=== PATIENT | female | born 1970 | race Caucasian/White ===

== ENCOUNTER 2018-12-11 09:46 | Day surgery (SDC) | payer BC ==
[~2018-12-11] VITALS: Ht 152.4 cm; Wt 75.0 kg
[2018-12-11 10:21] LABS: HEMATOCRIT 40.3 % (36.0-48.0); HEMOGLOBIN 13.9 g/dL (12-16); MCH 29.3 pg (26.0-34.0); MCHC 34.5 g/dL (31.0-37.0); MEAN PLATELET VOLUME 12.2 fL (7.4-10.4); RBC 4.74 10x6/uL (4.00-5.40); WBC 6.1 10x3/uL (4.8-10.8)
[2018-12-11 11:46] VITALS: BP 127/87; Ht 152.4 cm; Wt 75.0 kg
[2018-12-11 13:11] LABS: ALBUMIN 3.7 g/dL (3.4-5.0); BILIRUBIN - DIRECT 0.05 mg/dL (0.00-0.30); BILIRUBIN - INDIRECT 0.3 mg/dL (0.00-1.00); BILIRUBIN - TOTAL 0.35 mg/dL (0.2-1.3); PROTEIN - SERUM 7.2 g/dL (6.4-8.2)
--- NOTE | 2018-12-12 17:19 | OP ---
PATIENT NAME: RASTA LA MEDICAL RECORD: [id number] :74 LOCATION:[facility] ADMISSION DATE: SURGEON: JOHNNY CAZARES MD DATE OF OPERATION: 12/11/2018 PROCEDURE: EGD with biopsy. REFERRING PHYSICIAN: Dr. Gopal Ahumada. INDICATIONS: Ms. La is a delightful 48-year-old woman who presents for further evaluation of epigastric pain for the past year and a half. She has had intermittent high epigastric pain. She has tried nisq-fsn-zkdalxb Nexium, which seemed to help for a short period of time. She has had a chest x-ray that showed no abnormalities. She has had no melena, hematochezia or abnormal weight loss. She typically has 3-4 soft loose bowel movements daily, which has been her bowel habits since her cholecystectomy in 1990. She presents for outpatient EGD. PREMEDICATIONS: Total IV anesthesia, propofol 150 mg. INSTRUMENT: Olympus video gastroscope. PROCEDURE AND FINDINGS: After receiving informed consent, Ms. La's posterior pharynx was anesthetized with Cetacaine spray, placed in left lateral decubitus position, sedated as per anesthesia. After achieving adequate level of sedation, gastroscope was introduced per orally and advanced to the duodenum without difficulty. The esophageal mucosa was without erythema, ulcers, strictures or masses, appeared normal down the GE junction. Biopsy taken from the distal third of the esophagus to rule out microscopic evidence of GE reflux disease. Small hiatal hernia was present. Gastric mucosa was notable for streaks of erythema in the antrum and the antral biopsies were obtained to rule out Helicobacter pylori. In the fundus was a 0.75 cm sessile polyp that was cold biopsied. Pylorus was patent and competent. Duodenal mucosa was without erythema or ulcers, appeared normal through the second portion. Biopsies were taken from the second portion of duodenum to rule out celiac disease. Gastroscope was then withdrawn. Ms. La tolerated the procedure well, no immediate complications. ASSESSMENT: 1. Small hiatal hernia. 2. Polyp in the fundus of the stomach status post biopsy. 3. Gastritis involving the antrum, status post biopsy. 4. Normal-appearing duodenum. 5. Duodenal mucosa. RECOMMENDATIONS: 1. Follow up histopathology. 2. Pantoprazole 40 mg p.o. daily. 3. Right upper quadrant ultrasound, rule out retained common bile duct stone. 4. We will check amylase, lipase and liver function test. TRANSINT:[id number] Voice Confirmation ID: [id number] DOCUMENT ID: [id number] OPERATIVE REPORT [id number] RASTA LA TERRI MD at 1719 CC: GOPAL AHUMADA MD [id number] DICTATION DATE: 12/11/18 1233 DRAPERY SEWER HAND: 12/11/18 1331 [facility] 12/11/18 [id number] [place] [address]
== END 2018-12-11 13:35 | disposition home or self-care (01) ==
LOC: D.OPS
PROVIDERS: Anesthesiology; ATTEND Internal Medicine Gastroenterology
DX: K29.70 Gastritis, unspecified, without bleeding (principal); K31.7 Polyp of stomach and duodenum; K44.9 Diaphragmatic hernia without obstruction or gangrene

== ENCOUNTER → 2018-12-16 07:49 | Outpatient (CLI) | payer BC ==
[2018-12-11 11:46] VITALS: BMI 32.2
== END | disposition home or self-care (01) ==
LOC: D.US 07:49
PROVIDERS: ATTEND Internal Medicine Gastroenterology
DX: R10.9 Unspecified abdominal pain (principal)

== ENCOUNTER 2018-12-25 06:49 | Day surgery (SDC) | payer BC ==
[~2018-12-25] VITALS: Ht 152.4 cm; Wt 68.2 kg
[2018-12-25 07:11] LABS: HEMATOCRIT 41.9 % (36.0-48.0); HEMOGLOBIN 14.2 g/dL (12-16); MCH 28.8 pg (26.0-34.0); MCHC 33.9 g/dL (31.0-37.0); MEAN PLATELET VOLUME 12.3 fL (7.4-10.4); RBC 4.93 10x6/uL (4.00-5.40); RDW 12.9 % (11.5-14.5); WBC 8.3 10x3/uL (4.8-10.8)
[2018-12-25] MEDS ORDERED: AMOXICILLIN500 M1 (07:43)
[2018-12-25] MEDS ORDERED: CLARITHROMYCIN 500 MG (07:45)
[2018-12-25] MEDS ORDERED: PREVACID30 MG PO (07:45)
[2018-12-25] MEDS ORDERED: PROBIOTIC1 EAC1 PO (07:46)
[2018-12-25 08:07] VITALS: BP 110/77; Ht 152.4 cm; Wt 68.2 kg
--- NOTE | 2018-12-25 09:34 | NUR ---
0932-INJECT FUNDAL POLYP TIMES TWO WITH RENALDO INK-1 CC EACH-TWO SITES.
[2018-12-25 11:49] LABS: CALC OSMOLALITY 276 mosm/kg (275-300); CALCIUM 8.6 mg/dL (8.5-10.1); CARBON DIOXIDE 28.6 mmol/L (21.0-32.0); CHLORIDE - SERUM 103 mmol/L (98-107); CREATININE - SERUM 0.7 mg/dL (0.6-1.3); GLUCOSE 96 mg/dL (74-106); POTASSIUM - SERUM 4.5 mmol/L (3.5-5.1); SODIUM 139 mmol/L (136-145); UREA NITROGEN 9 mg/dL (7-18); eGFR NON AFRICAN AMERICAN > 90 mL/min (90-120)
--- NOTE | 2018-12-25 12:23 | OP ---
PATIENT NAME: RASTA LA MEDICAL RECORD: [id number] :74 LOCATION:[facility] ADMISSION DATE: SURGEON: JOHNNY CAZARES MD DATE OF OPERATION: 12/25/2018 PROCEDURE: EGD with biopsy and tattoo. REFERRING PHYSICIAN: Dr. Gopal Ahumada. INDICATIONS: Ms. La is a delightful 48-year-old woman with a history of epigastric pain, which has been present for over a year and a half, no relief with saxm-eie-dtpoien Nexium. She had an EGD on 12/11/2018 that shows small hiatal hernia. A small polyp, approximate 0.75 cm sessile polyp, in the fundus of the stomach and gastritis. Initial histopathology showed the antral biopsies to be negative for H. pylori and the gastric polyp to have a lymphoplasmacytic infiltrate with tissues sent for IHC. The specimens were sent for second opinion to [facility] where the gastric polyp biopsy showed adenocarcinoma, poorly differentiated, with diffuse type features, with H. pylori present; antral biopsy showed mild chronic inactive gastritis with the ciliary forms morphologically consistent with H. pylori present. She has been started on a Prevpac to treat her H. pylori. She presents for a followup EGD with the purpose of rebiopsy and tattoo for intraoperative identification. PREMEDICATIONS: Total IV anesthesia (propofol 340 mg). INSTRUMENT: Olympus video gastroscope. PROCEDURE AND FINDINGS: After receiving informed consent, Ms. La's posterior pharynx was anesthetized with Cetacaine spray. She was placed in left lateral decubitus position and sedated as per anesthesia. After achieving an adequate level of sedation, gastroscope was introduced per orally and advanced into the duodenum without difficulty. The esophageal mucosa was without erythema, ulcers, strictures or masses and appeared normal down the GE junction. A small hiatal hernia is present. Gastric mucosa was notable for streaky erythema in the antrum and no antral biopsies were obtained on this exam. In the fundus of the stomach, along the greater curvature was a 0.75 cm sessile polyp with the area tattooed with total of 2 cc of Abeba ink. Then the polyp was rebiopsied. Also, there was a diminutive polyp measuring 0.25 cm in size in the cardia of the stomach, which was likewise biopsied. Pylorus was patent and competent. Duodenal mucosa was without erythema or ulcers, appeared normal through the third portion. Gastroscope was then withdrawn. Ms. La tolerated the procedure well. No immediate complications. ASSESSMENT: 1. Fundal polyp status post tattoo and biopsy. 2. Small polyp in the cardia. 3. Gastritis. 4. Small hiatal hernia. RECOMMENDATIONS: 1. Follow up histopathology. 2. CT of the chest, abdomen and pelvis. 3. Mammogram. TRANSINT:[id number] Voice Confirmation ID: [id number] DOCUMENT ID: [id number] OPERATIVE REPORT [id number] RASTA LA TERRI MD at 1223 CC: GOPAL AHUMADA MD [id number] DICTATION DATE: 12/25/18 0959 SENIOR FUNCTIONAL ANALYST: 12/25/18 1143 [facility] [address] [place] [address]
--- NOTE | 2018-12-25 15:55 | NUR ---
[address] TOLERATING FULL LIQUIDS. VSS.
== END 2018-12-25 13:00 | disposition home or self-care (01) ==
LOC: D.OPS 06:49
PROVIDERS: Anesthesiology; ATTEND Internal Medicine Gastroenterology
DX: K31.7 Polyp of stomach and duodenum (principal); C16.1 Malignant neoplasm of fundus of stomach; K29.50 Unspecified chronic gastritis without bleeding; B96.81 Helicobacter pylori [H. pylori] as the cause of diseases classified elsewhere; K44.9 Diaphragmatic hernia without obstruction or gangrene; Z79.899 Other long term (current) drug therapy; Z01.812 Encounter for preprocedural laboratory examination

== ENCOUNTER → 2019-01-20 09:13 | Outpatient (CLI) | payer BC ==
[2018-12-25 08:07] VITALS: BMI 29.3
[~2019-01-20 09:13] MED LIST: AMOXICILLIN500 M1; CLARITHROMYCIN 500 MG; PREVACID30 MG PO; PROBIOTIC1 EAC1 PO
== END | disposition home or self-care (01) ==
LOC: D.NM 09:13
PROVIDERS: ATTEND Internal Medicine Gastroenterology
DX: D3A.092 Benign carcinoid tumor of the stomach (principal)

== ENCOUNTER 2019-05-23 08:07 | Emergency (ER) | payer BC ==
[~2019-05-23] VITALS: Ht 152.4 cm; Wt 63.6 kg
[2019-05-23 08:17] VITALS: Ht 152.4 cm; Wt 63.6 kg
[2019-05-23 08:30] LABS: APPEARANCE HAZY (CLEAR); COLOR YELLOW (YELLOW)
[2019-05-23 08:31] LABS: BILIRUBIN NEGATIVE (NEGATIVE); GLUCOSE NEGATIVE (NEGATIVE); KETONE MODERATE mg/dL (NEGATIVE); NITRITE NEGATIVE (NEGATIVE); PROTEIN NEGATIVE (NEGATIVE); UROBILINOGEN NORMAL (NORMAL)
[2019-05-23 08:35] LABS: BACTERIA FEW /hpf (NONE SEEN); EPITHELIAL CELLS 0-5 /hpf (0-5); MUCUS <1+ /lpf (NONE SEEN); RED CELLS - URINE 25-50 /hpf (0-5)
[2019-05-23] MEDS ORDERED: CIPRO250 MG PO (09:11)
[2019-05-23] MEDS ORDERED: DILAUDID4 MG PO (09:11)
[2019-05-23 09:41] VITALS: BP 143/87
== END 2019-05-23 09:43 | disposition home or self-care (01) ==
LOC: D.ER 08:07
PROVIDERS: Emergency Medicine
DX: R31.9 Hematuria, unspecified (principal); N39.0 Urinary tract infection, site not specified

== ENCOUNTER 2019-07-15 19:57 | Observation (INO) | payer BC ==
[~2019-07-15] VITALS: Ht 152.4 cm; Wt 58.5 kg
[~2019-07-15 19:57] MED LIST changes: +CIPRO250 MG PO; +DILAUDID4 MG PO
[2019-07-15 21:27] LABS: BASOPHILS 0.4 % (0-2); HEMATOCRIT 37.4 % (36.0-48.0); HEMOGLOBIN 12.2 g/dL (12-16); IMMATURE GRANULOCYTES 0.1 % (0-5); LYMPHOCYTES 22.9 % (15-50); MCH 27.6 pg (26.0-34.0); MCHC 32.6 g/dL (31.0-37.0); MCV 84.6 fL (80.0-100.0); MEAN PLATELET VOLUME 12.6 fL (7.4-10.4); MONOCYTES 7.1 % (2-11); NEUTROPHILS 67.5 % (40-80); PLATELET COUNT 225 10x3/uL (130-400); RBC 4.42 10x6/uL (4.00-5.40); RDW 14.3 % (11.5-14.5)
[2019-07-15 21:54] LABS: APPEARANCE HAZY (CLEAR); BILIRUBIN NEGATIVE (NEGATIVE); COLOR YELLOW (YELLOW); GLUCOSE NEGATIVE (NEGATIVE); KETONE MODERATE mg/dL (NEGATIVE); NITRITE NEGATIVE (NEGATIVE); PROTEIN 1+ mg/dL (NEGATIVE); UROBILINOGEN NORMAL (NORMAL)
[2019-07-15 21:55] LABS: BACTERIA FEW /hpf (NEGATIVE); EPITHELIAL CELLS 0-5 /hpf (0-5); RED CELLS - URINE 25-50 /hpf (0-5); WHITE CELLS - URINE 0-5 /hpf (NEGATIVE)
[2019-07-15 22:02] LABS: ALBUMIN 3.8 g/dL (3.4-5.0); ALKALINE PHOSPHATASE 101 U/L (46-116); ALT (SGPT) 24 U/L (10-68); BILIRUBIN - TOTAL 0.39 mg/dL (0.2-1.3); CALC OSMOLALITY 284 mosm/kg (275-300); CALCIUM 8.6 mg/dL (8.5-10.1); CARBON DIOXIDE 30.4 mmol/L (21.0-32.0); CHLORIDE - SERUM 105 mmol/L (98-107); CREATININE - SERUM 0.6 mg/dL (0.6-1.3); GLUCOSE 116 mg/dL (74-106); POTASSIUM - SERUM 3.3 mmol/L (3.5-5.1); PROTEIN - SERUM 7.5 g/dL (6.4-8.2); SODIUM 143 mmol/L (136-145); UREA NITROGEN 10 mg/dL (7-18); eGFR NON AFRICAN AMERICAN > 90 mL/min (90-120)
[2019-07-15 22:10] LABS: LIPASE 101 U/L (73-393); PRO BNP 255 pg/mL (0-125); TROPONIN-I < 0.017 ng/mL (0.000-0.060)
[2019-07-15 22:30] VITALS: BP 134/79
--- NOTE | 2019-07-15 22:40 | NUR ---
PT TO RADIOLOGY.
--- NOTE | 2019-07-15 23:01 | NUR ---
PT RETURNED FROM RADIOLOGY.
[2019-07-15 23:30] VITALS: BP 155/76
--- NOTE | 2019-07-15 23:34 | NUR ---
PT GIVEN BLANKETS AND HEAD OF BED ADJUSTED FOR COMFORT. PT DENIES ANY FURTHER NEEDS AT THIS TIME. CALL LIGHT WITHIN REACH, FAMILY AT BEDSIDE. WILL CONTINUE TO MONITOR.
[2019-07-16] MEDS ORDERED: PROTONIX40 MG PO (00:29)
[2019-07-16 00:30] VITALS: BP 144/80; BMI 25.2
--- NOTE | 2019-07-16 00:45 | NUR ---
RECIEVED REPORT FROM MINNA PATRICK. PT ARRIVED BY WHEELCHAIR. PT AAOX4, VSS, NO S/S OF DISTRESS. ALTHOUGH PT C/O PAIN IN LOWER BACK AND UPPER PELVIC REGION. PT STATES IT IS A 7/10 AT THIS TIME. PLACED PT ON MORPHINE TRUSS PULLER HELPER ORDERED. SCAR ON ABD, ABD TENDER. PT APPEARS PALE. AT BEDSIDE. PT DENIES ANY FURTHER NEEDS AT THIS TIME. WILL CPOC. CL WITHIN REACH, BED IN LOW, SR UP X2.
[2019-07-16 04:47] VITALS: BP 112/67
[2019-07-16 07:11] LABS: BASOPHILS 0.3 % (0-2); EOSINOPHILS 0.6 % (0-7); HEMATOCRIT 33.1 % (36.0-48.0); HEMOGLOBIN 10.8 g/dL (12-16); LYMPHOCYTES 26.5 % (15-50); MCH 27.8 pg (26.0-34.0); MCHC 32.6 g/dL (31.0-37.0); MCV 85.1 fL (80.0-100.0); MEAN PLATELET VOLUME 12.2 fL (7.4-10.4); MONOCYTES 9.7 % (2-11); NEUTROPHILS 62.9 % (40-80); RBC 3.89 10x6/uL (4.00-5.40); RDW 14.6 % (11.5-14.5); WBC 6.2 10x3/uL (4.8-10.8)
[2019-07-16 07:12] LABS: PLATELET COUNT 164 10x3/uL (130-400)
[2019-07-16 07:26] LABS: ALKALINE PHOSPHATASE 108 U/L (46-116); BILIRUBIN - TOTAL 0.38 mg/dL (0.2-1.3); CALCIUM 7.8 mg/dL (8.5-10.1); CARBON DIOXIDE 29.3 mmol/L (21.0-32.0); CHLORIDE - SERUM 110 mmol/L (98-107); CREATININE - SERUM 0.6 mg/dL (0.6-1.3); GLUCOSE 90 mg/dL (74-106); POTASSIUM - SERUM 3.6 mmol/L (3.5-5.1); SODIUM 143 mmol/L (136-145); eGFR NON AFRICAN AMERICAN > 90 mL/min (90-120)
[2019-07-16 07:27] LABS: ALBUMIN 2.7 g/dL (3.4-5.0); ALT (SGPT) 72 U/L (10-68); CALC OSMOLALITY 281 mosm/kg (275-300); PROTEIN - SERUM 5.5 g/dL (6.4-8.2); UREA NITROGEN 5 mg/dL (7-18)
[2019-07-16 08:00] VITALS: BP 114/76
--- NOTE | 2019-07-16 08:00 | NUR ---
PT RESTING. C/O NAUSEA. ZOFRAN RECIEVED PER ORDER. RR EVEN AND UNLABORED. DENIES FURTHER NEEDS OR PAIN AT THIS TIME. ALERT AND ORIENTED. WILL CONTINUE TO MONITOR.
[2019-07-16 12:41] VITALS: Ht 152.4 cm; Wt 58.5 kg
--- NOTE | 2019-07-16 12:43 | HP ---
PATIENT: RASTA SANDHU MEDICAL RECORD: [id number] ACCOUNT: [id number] [facility] : 72 ADMISSION DATE: 07/16/19 PCP: THADDEUS AHUMADA MD HISTORY AND PHYSICAL EXAMINATION DATE OF ADMISSION: 07/15/2019 CHIEF COMPLAINT: 1. Flank and abdominal pain. 2. Ureteral stone. HISTORY OF PRESENT ILLNESS: This is a 48-year-old female who presented to the ER last night complaining of a sharp stabbing pain in her lower abdomen. They got worse as the day went known and she started having right flank pain. She had nausea, though no vomiting. She has had no history of kidney stones in the past. Workup in the ER showed a normal white blood cell count. Liver enzymes are mildly elevated. Her urine showed 2+ blood and few bacteria. CT of the abdomen and pelvis done last night showed a 4 x 5 distal right ureteral stone associated with hydronephrosis. She is admitted. PAST MEDICAL AND SURGICAL HISTORY: She has a history of gastric cancer. PAST SURGICAL HISTORY: Partial gastrectomy with Vesna-en-Y gastrojejunostomy. She has also had appendectomy, , cholecystectomy, and cataract removal. ALLERGIES: DILAUDID AND TAGAMET. HOME MEDICATIONS: Multivitamin once a day, Protonix 40 mg once a day. 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 HABITS: Former smoker, no alcohol or drugs. FAMILY HISTORY: Unremarkable. REVIEW OF SYSTEMS: GENERAL: She has had weight loss around the diagnosis and treatment of her gastric cancer. HEENT: No particular sinus or allergy problems. RESPIRATORY: No history of asthma or emphysema. She is a former smoker. CARDIAC: No chest pain or palpitations. GASTROINTESTINAL: See above history with her gastric cancer and resulted surgery. UROLOGY: No history of kidney stones. She has had occasional UTIs. MUSCULOSKELETAL: No arthritic aches or pains. NEUROLOGIC: No migraines or seizures. PSYCHIATRIC: Denies depression or melancholia. PHYSICAL EXAMINATION: VITAL SIGNS: Temperature 97.9, pulse 62, respirations 17, blood pressure 114/76. GENERAL: She does not appear in acute distress at this time. She is awake and alert. SKIN: Warm and dry. HISTORY AND PHYSICAL [id number] RASTA SANDHU HEENT: Grossly within normal limits. NECK: Supple. HEART: Regular rate and rhythm. LUNGS: Clear. ABDOMEN: Soft. There is some tenderness to palpation in the suprapubic area. No guarding, no rebound, no mass. She has had some right flank pain. LABORATORY DATA: CBC with a white count of 6200, hemoglobin 10.8. Basic metabolic panel; sodium 143, potassium 3.6, chloride 110, CO2 29, BUN 5, creatinine 0.6, glucose 90, calcium 7.8. Liver functions; AST 122, ALT 72, albumin 3.7. Lactic acid 0.7. CBC with a white count of 8000, hemoglobin 12.2, hematocrit 37.4, platelets are normal. ProBNP 255. Troponin less than 0.017. Urinalysis is yellow, hazy, 1+ protein, moderate ketones, 2+ blood, 25-50 red blood cells, 0-5 epithelial cells, few bacteria. CT of abdomen and pelvis with IV contrast. Lung bases were clear. Postoperative changes from cholecystectomy. There is a 4 x 5 mm distal right ureteral calculus associated with hydronephrosis. ASSESSMENT: 1. Right ureteral stone with hydronephrosis. 2. Pain. 3. Nausea. PLAN: IV fluids, pain control, antiemetics. Consulting Dr. Lim. Other tests or procedures as warranted. TRANSINT:[id number] Voice Confirmation ID: [id number] DOCUMENT ID: [id number] THADDEUS AHUMADA MD at 1243 CC: [id number] DICTATION DATE: 07/16/19909 CIRCUS TRAIN SUPERVISOR: 07/16/19 1006 ADM IN [id number] [place] [address]
--- NOTE | 2019-07-16 14:30 | NUR ---
PT LEFT VIA STRECHER TO OR.
--- NOTE | 2019-07-16 15:36 | NUR ---
PT RETURNED FROM SURGERY VIA BED. ORIENTED BUT SLEEPY. RR EVEN AND UNLABORED. VSS AT THIS TIME. INSTRUCTED TO INFORM ME BEFORE URINATING. DENIES NEEDS OR PAIN AT THIS TIME. WILL CONTINUE TO MONITOR.
--- NOTE | 2019-07-16 18:31 | NUR ---
WRITTEN RX COPIED AND PLACED ON CHART.
--- NOTE | 2019-07-16 18:54 | NUR ---
D/C INSTRUCTIONS REVIEWED WITH PT AND SPOUSE. VERBALIZED UNDERSTANDING. CHRIS HOLLOWAY CALLED INTO [facility] PER DR. OCONNELL REQUEST. IV D/C WITH CATHETER TIP INTACT. PT LEFT VIA WHEELCHAIR TO PERSONAL VEHICLE WITH ALL BELONGINGS.
--- NOTE | 2019-07-17 12:09 | OP ---
PATIENT NAME: RASTA SANDHU MEDICAL RECORD: [id number] :74 LOCATION:D.M3 D.1204 ADMISSION DATE:07/16/19 SURGEON: JUANITO OCONNELL MD DATE OF OPERATION: 07/16/2019 SURGEON: Juanito Oconnell MD ANESTHESIA: TIVA by Judah Ontiveros CRNA. DIAGNOSIS: A 4 x 5-mm right distal ureteral stone. PROCEDURES: Cystoscopy, right retrograde pyelogram, right ureteroscopy and stone extraction, right ureteral stent insertion 6-Tuvaluan x 24 cm with string attached. FINDINGS: Radiodense right distal ureteral stone. SPECIMENS: Right ureteral stone. ESTIMATED BLOOD LOSS: None. CLINICAL HISTORY: This is a 48-year-old female with no previous history of kidney stones. There is a family history of kidney stones and her mother having had kidney stones. She had 1 day of acute right flank pain with nausea and vomiting. She was admitted for pain control. A CT scan shows a right distal ureteral stone 4 x 5 mm in size with proximal hydroureteronephrosis. She comes now to have the stone removed by ureteroscopy. She is allergic to CIMETIDINE AND HYDROMORPHONE. She was given Ancef production corrugator to the OR. DESCRIPTION OF PROCEDURE: The patient was placed on the OR table. Fluoroscopy revealed the radiodensity in the pelvis, which may be the renal stone. She was given IV sedation. She was then placed into lithotomy position and prepped and draped. Cystoscopy was performed using a 21-Tuvaluan scope with 30-degree lens. No bladder tumors were seen. The right ureteral orifice was intubated with a 5-Tuvaluan open-ended ureteral catheter. Diluted contrast was injected and the radiodensity, which we saw on the pelvis was indeed the ureteral stone. There was quite significant hydronephrosis proximal to the stone. A Sensor wire was put through the lumen of the ureteral catheter and passed the stone. We went up to the renal pelvis. Once the Sensor wire was in position, the open-ended ureteral catheter was removed entirely. Over the Sensor wire, we inserted an 18-Tuvaluan x 4 cm UroMax dilation balloon. The right ureteral orifice was dilated with 12 atmospheres of pressure. We then moved a little more proximally, so that the balloon was just inferior to the position of the stone. The balloon was dilated with 8 atmospheres of pressure. The balloon was then deflated entirely and removed entirely. A rigid ureteroscope was used to go up the ureter beside the wire. The stone was identified. It was trapped with a 4-wire 0-tip basket and removed entirely. I repeated the ureteroscopy up to the mid ureteral level to be sure that there were no other stones present. We then backloaded this sensor wire onto the cystoscope. A 6-Tuvaluan x 24 cm ureteral stent was inserted over the wire into the kidney. Once the stent was in correct position, the distal end of the stent was pushed into the bladder using a pusher. The wire was removed entirely. The OPERATIVE REPORT [id number] RASTA SANDHU bladder was then emptied through the cystoscope and the scope was removed. The string on the distal end of the stent is maintained. It hangs out of the urethra. It was taped to the suprapubic region with a small piece of Tegaderm. The patient can be discharged home with pain medications and [place] 5/325 times 28 tablets p.r.n. and Flomax. I will see her in followup next week to remove the stent by pulling on the string. TRANSINT:[id number] Voice Confirmation ID: [id number] DOCUMENT ID: [id number] JUANITO OCONNELL MD at 1209 CC: [id number] DICTATION DATE: 07/16/19 152 AVICULTURIST: 07/16/192303 DIS IN 07/16/19 [facility] [address] [id number]
[2019-07-28 16:08] LABS: CALCULI - AMMONIUM ACID URATE 10 % (()); CALCULI - CA OXALATE DIHYDRATE 15 % (()); CALCULI - CA OXALATE MONOHYDR 72 % (()); CALCULI - COLOR Brown (())
== END 2019-07-16 18:57 | disposition home or self-care (01) ==
LOC: D.ER 19:57 → D.M3 23:47 → OBSVTIME 23:47 → D.M3 07-16 10:10
PROVIDERS: Family Medicine; ADMIT Family Medicine; ATTEND Family Medicine
DX: N13.2 Hydronephrosis with renal and ureteral calculous obstruction (principal); K21.9 Gastro-esophageal reflux disease without esophagitis; R11.0 Nausea; Z87.891 Personal history of nicotine dependence

== ENCOUNTER 2019-07-23 14:11 | Emergency (ER) | payer BC ==
[~2019-07-23] VITALS: Ht 152.4 cm; Wt 58.6 kg
[~2019-07-23 14:11] MED LIST changes: +PROTONIX40 MG PO
[2019-07-23 14:13] VITALS: Ht 152.4 cm; Wt 58.6 kg
[2019-07-23 14:39] LABS: BASOPHILS 0.1 % (0-2); EOSINOPHILS 0 % (0-7); HEMATOCRIT 36.7 % (36.0-48.0); HEMOGLOBIN 12.1 g/dL (12-16); IMMATURE GRANULOCYTES 0.2 % (0-5); LYMPHOCYTES 3.5 % (15-50); MCH 27.8 pg (26.0-34.0); MCV 84.2 fL (80.0-100.0); MEAN PLATELET VOLUME 12.8 fL (7.4-10.4); MONOCYTES 8.5 % (2-11); NEUTROPHILS 87.7 % (40-80); PLATELET COUNT 171 10x3/uL (130-400); RBC 4.36 10x6/uL (4.00-5.40); RDW 14.7 % (11.5-14.5)
[2019-07-23 14:42] LABS: ANION GAP 10.3 mmol/L (8-16); CALCIUM 8.6 mg/dL (8.5-10.1); CREATININE - SERUM 0.9 mg/dL (0.6-1.3); POTASSIUM - SERUM 3.3 mmol/L (3.5-5.1)
[2019-07-23 14:49] LABS: ALBUMIN 3.4 g/dL (3.4-5.0); BILIRUBIN - TOTAL 1.18 mg/dL (0.2-1.3); PROTEIN - SERUM 6.8 g/dL (6.4-8.2)
[2019-07-23 16:15] LABS: APPEARANCE HAZY (CLEAR); COLOR YELLOW (YELLOW); SPECIFIC GRAVITY 1.005 (1.005-1.020)
[2019-07-23 16:16] LABS: BILIRUBIN NEGATIVE (NEGATIVE); GLUCOSE NEGATIVE (NEGATIVE); KETONE LARGE mg/dL (NEGATIVE); NITRITE POSITIVE (NEGATIVE); PROTEIN 1+ mg/dL (NEGATIVE); UROBILINOGEN NORMAL (NORMAL)
[2019-07-23 16:17] LABS: BACTERIA MANY /hpf (NEGATIVE); EPITHELIAL CELLS 0-5 /hpf (0-5); RED CELLS - URINE 25-50 /hpf (0-5); WHITE CELLS - URINE 0-5 /hpf (NEGATIVE)
[2019-07-23] MEDS ORDERED: LEVAQUIN750 MG PO (17:49)
[2019-07-23] MEDS ORDERED: ZOFRAN8 MG PO (20:04)
[2019-07-23 20:42] VITALS: BP 100/66
== END 2019-07-23 20:42 | disposition home or self-care (01) ==
LOC: D.ER 14:11
PROVIDERS: Family Medicine
DX: N39.0 Urinary tract infection, site not specified (principal); R50.9 Fever, unspecified

== ENCOUNTER 2019-12-21 17:21 | Emergency (ER) | payer BC ==
[~2019-12-21] VITALS: Ht 152.4 cm; Wt 58.2 kg
[~2019-12-21 17:21] MED LIST changes: +LEVAQUIN750 MG PO; +ZOFRAN8 MG PO
[2019-12-21 17:25] VITALS: Ht 152.4 cm; Wt 58.2 kg
[2019-12-21 18:13] LABS: CALC OSMOLALITY 278 mosm/kg (275-300); CALCIUM 8.7 mg/dL (8.5-10.1); CHLORIDE - SERUM 105 mmol/L (98-107); CREATININE - SERUM 0.8 mg/dL (0.6-1.3); GLUCOSE 131 mg/dL (74-106); POTASSIUM - SERUM 3.6 mmol/L (3.5-5.1); SODIUM 140 mmol/L (136-145); UREA NITROGEN 7 mg/dL (7-18); eGFR NON AFRICAN AMERICAN 81 mL/min (90-120)
[2019-12-21 18:16] LABS: HEMATOCRIT 38.7 % (36.0-48.0); HEMOGLOBIN 12.6 g/dL (12-16); LYMPHOCYTES 22.4 % (15-50); MCH 28.3 pg (26.0-34.0); MCHC 32.6 g/dL (31.0-37.0); MEAN PLATELET VOLUME 12.5 fL (7.4-10.4); NEUTROPHILS 71.4 % (40-80); PLATELET COUNT 188 10x3/uL (130-400); RBC 4.45 10x6/uL (4.00-5.40); RDW 13.3 % (11.5-14.5); WBC 7.9 10x3/uL (4.8-10.8)
[2019-12-21 18:18] LABS: ALBUMIN 3.5 g/dL (3.4-5.0); ALKALINE PHOSPHATASE 126 U/L (30-120); ALT (SGPT) 18 U/L (10-68); AMYLASE - SERUM 35 U/L (25-115); BILIRUBIN - TOTAL 0.32 mg/dL (0.2-1.3); LIPASE 82 U/L (73-393); PROTEIN - SERUM 7.2 g/dL (6.4-8.2)
[2019-12-21 18:21] LABS: BILIRUBIN NEGATIVE (NEGATIVE); GLUCOSE NEGATIVE (NEGATIVE); KETONE NEGATIVE (NEGATIVE); NITRITE NEGATIVE (NEGATIVE); UROBILINOGEN NORMAL (NORMAL)
[2019-12-21 18:22] LABS: TROPONIN-I < 0.017 ng/mL (0.000-0.060)
[2019-12-21] MEDS ORDERED: ZOFRAN ODT4 MG/UDTAB PO (19:47)
[2019-12-21] MEDS ORDERED: BENTYL 20 MG TA20 MG PO (19:47)
[2019-12-21 20:31] VITALS: BP 137/93
== END 2019-12-21 20:31 | disposition home or self-care (01) ==
LOC: D.ER 17:21
PROVIDERS: Family Medicine
DX: A08.4 Viral intestinal infection, unspecified (principal); R11.0 Nausea; R10.9 Unspecified abdominal pain

== ENCOUNTER 2020-05-04 07:59 | Day surgery (SDC) | payer BC ==
[~2020-05-04] VITALS: Ht 152.4 cm; Wt 58.6 kg
[2020-05-04 06:56] VITALS: BP 133/83; Ht 152.4 cm; Wt 58.6 kg
[~2020-05-04 07:59] MED LIST changes: +BENTYL 20 MG TA20 MG PO; +CENTRUM SILVER1 EAC3 PO; +ZOFRAN ODT4 MG/UDTAB PO
[2020-05-04] MEDS ORDERED: PROTONIX40 MG PO (08:25)
--- NOTE | 2020-05-04 08:45 | NUR ---
0830 DR. CAZARES ROUNDS AND CANCELLED PEDCID ORDER.
[2020-05-04 09:10] LABS: HEMATOCRIT 39.9 % (36.0-48.0); MCH 29.1 pg (26.0-34.0); MCHC 32.6 g/dL (31.0-37.0); MCV 89.5 fL (80.0-100.0); MEAN PLATELET VOLUME 12.4 fL (7.4-10.4); RBC 4.46 10x6/uL (4.00-5.40); RDW 14.2 % (11.5-14.5); WBC 5.7 10x3/uL (4.8-10.8)
--- NOTE | 2020-05-06 13:34 | OP ---
PATIENT NAME: RASTA LA MEDICAL RECORD: [id number] :74 LOCATION:D.OPS ADMISSION DATE: SURGEON: JOHNNY CAZARES MD DATE OF OPERATION: 05/04/2020 PROCEDURE: EGD with biopsy. REFERRING PHYSICIAN: Gopal Ahumada MD (Bill) INDICATIONS: Ms. 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 She has occasional high epigastric discomfort, but no nausea or vomiting. She presents for surveillance EGD. Since her surgery in 2018, she has lost approximately 40 pounds and weight has stabilized. She presents for outpatient surveillance EGD. PREMEDICATIONS: Total IV anesthesia (propofol 180 mg). INSTRUMENT: Olympus video gastroscope. PROCEDURE AND FINDINGS: After receiving informed consent, Ms. La's posterior pharynx was anesthetized with Cetacaine spray. She was placed in left lateral decubitus position, sedated as per anesthesia. After achieving adequate level of sedation, gastroscope was introduced per orally and advanced into the jejunum without difficulty. Esophageal mucosa was without erythema, ulcers, strictures or masses, appeared normal down the GE junction. Gastric pouch was notable for minimal erythema near the anastomosis. The pouch measured approximately 4 to 5 cm in length. The anastomosis was wide open with the jejunum. The gastrojejunal anastomosis was wide open. Biopsies were taken from around the anastomosis from mucosa adjacent to the anastomosis. The viewed jejunal mucosa appeared normal. Biopsies were taken from the jejunum. The gastroscope was then withdrawn. Ms. La tolerated the procedure well, no immediate complications. ASSESSMENT: 1. Minimal gastric pouchitis status post biopsy. 2. Gastric neuroendocrine tumor status post subtotal gastrectomy with Vesna-en-Y gastrojejunostomy 03/2019. RECOMMENDATIONS: 1. Continue Protonix 40 mg in the morning. 2. We will add Pepcid 40 mg at bedtime. 3. Reflux precautions. 4. EGD in 1 year. TRANSINT:[id number] Voice Confirmation ID: [id number] DOCUMENT ID: [id number] cc: Dr. Cuco Boothe [phone] OPERATIVE REPORT [id number] RASTA LA TERRI MD at 1334 CC: GOPAL AHUMADA MD and DR. CUCO BOOTHE [id number] DICTATION DATE: 05/04/20820 CERAMIC ARTIST: 05/04/20 2147 [facility] 05/04/20 [id number] [place] [id number]
== END 2020-05-04 09:08 | disposition home or self-care (01) ==
LOC: D.OPS 07:59
PROVIDERS: Anesthesiology; ATTEND Internal Medicine Gastroenterology
DX: R10.13 Epigastric pain (principal); K91.850 Pouchitis

== ENCOUNTER 2020-06-08 09:30 | Emergency (ER) | payer BC ==
[~2020-06-08] VITALS: Ht 152.4 cm; Wt 58.2 kg
[2020-06-08 09:57] VITALS: Ht 152.4 cm; Wt 58.2 kg
[2020-06-08 10:23] LABS: BASOPHILS 0.3 % (0-2); EOSINOPHILS 1.1 % (0-7); HEMATOCRIT 38.4 % (36.0-48.0); HEMOGLOBIN 12.6 g/dL (12-16); LYMPHOCYTES 22.8 % (15-50); MCH 29.4 pg (26.0-34.0); MCHC 32.8 g/dL (31.0-37.0); MCV 89.5 fL (80.0-100.0); MEAN PLATELET VOLUME 12.2 fL (7.4-10.4); MONOCYTES 5.4 % (2-11); NEUTROPHILS 70.4 % (40-80); PLATELET COUNT 200 10x3/uL (130-400); RBC 4.29 10x6/uL (4.00-5.40); RDW 13.7 % (11.5-14.5); WBC 6.1 10x3/uL (4.8-10.8)
[2020-06-08 10:32] LABS: CALC OSMOLALITY 284 mosm/kg (275-300); CALCIUM 8.4 mg/dL (8.5-10.1); CARBON DIOXIDE 30.2 mmol/L (21.0-32.0); CHLORIDE - SERUM 105 mmol/L (98-107); CREATININE - SERUM 0.8 mg/dL (0.6-1.3); POTASSIUM - SERUM 3.8 mmol/L (3.5-5.1); SODIUM 141 mmol/L (136-145); UREA NITROGEN 7 mg/dL (7-18); eGFR NON AFRICAN AMERICAN 81 mL/min (90-120)
[2020-06-08 10:33] LABS: GLUCOSE 202 mg/dL (74-106)
[2020-06-08 10:38] LABS: ALBUMIN 3.5 g/dL (3.4-5.0); ALKALINE PHOSPHATASE 119 U/L (30-120); ALT (SGPT) 16 U/L (10-68); BILIRUBIN - TOTAL 0.49 mg/dL (0.2-1.3); MAGNESIUM - SERUM 1.9 mg/dL (1.8-2.4)
[2020-06-08 11:25] LABS: BILIRUBIN NEGATIVE (NEGATIVE); KETONE NEGATIVE (NEGATIVE); NITRITE NEGATIVE (NEGATIVE); UROBILINOGEN NORMAL (NORMAL)
[2020-06-08 12:13] VITALS: BP 128/80
== END 2020-06-08 12:14 | disposition home or self-care (01) ==
LOC: D.ER 09:30
PROVIDERS: Emergency Medicine
DX: R53.1 Weakness (principal); R73.9 Hyperglycemia, unspecified; K21.9 Gastro-esophageal reflux disease without esophagitis

== ENCOUNTER 2020-07-03 16:56 | Emergency (ER) | payer BC ==
[~2020-07-03] VITALS: Ht 152.4 cm; Wt 58.2 kg
[2020-07-03 17:28] VITALS: Ht 152.4 cm; Wt 58.2 kg
[2020-07-03 17:56] LABS: BASOPHILS 0.2 % (0-2); EOSINOPHILS 1.9 % (0-7); HEMATOCRIT 36.3 % (36.0-48.0); HEMOGLOBIN 11.9 g/dL (12-16); IMMATURE GRANULOCYTES 0.1 % (0-5); LYMPHOCYTES 32.8 % (15-50); MCH 29.1 pg (26.0-34.0); MCHC 32.8 g/dL (31.0-37.0); MCV 88.8 fL (80.0-100.0); MEAN PLATELET VOLUME 11.9 fL (7.4-10.4); MONOCYTES 9.9 % (2-11); NEUTROPHILS 55.1 % (40-80); PLATELET COUNT 222 10x3/uL (130-400); RBC 4.09 10x6/uL (4.00-5.40); WBC 8.4 10x3/uL (4.8-10.8)
[2020-07-03 18:17] LABS: CALC OSMOLALITY 274 mosm/kg (275-300); CALCIUM 8.3 mg/dL (8.5-10.1); CARBON DIOXIDE 30.9 mmol/L (21.0-32.0); CHLORIDE - SERUM 104 mmol/L (98-107); CREATININE - SERUM 0.8 mg/dL (0.6-1.3); POTASSIUM - SERUM 3.6 mmol/L (3.5-5.1); SODIUM 138 mmol/L (136-145); UREA NITROGEN 10 mg/dL (7-18); eGFR NON AFRICAN AMERICAN 81 mL/min (90-120)
[2020-07-03 18:18] LABS: GLUCOSE 107 mg/dL (74-106)
[2020-07-03 18:25] LABS: ALBUMIN 3.5 g/dL (3.4-5.0); ALKALINE PHOSPHATASE 117 U/L (30-120); ALT (SGPT) 20 U/L (10-68); BILIRUBIN - TOTAL 0.24 mg/dL (0.2-1.3); PROTEIN - SERUM 6.9 g/dL (6.4-8.2)
[2020-07-03] MEDS ORDERED: HYDROCODON-ACE1 EA10 PO (19:16)
[2020-07-03] MEDS ORDERED: ZOFRAN4 MG PO (19:16)
[2020-07-03] MEDS ORDERED: TORADOL10 MG PO (19:16)
[2020-07-03] MEDS ORDERED: FLOMAX0.4 MG PO (19:19)
[2020-07-03 20:00] LABS: BILIRUBIN NEGATIVE (NEGATIVE); KETONE NEGATIVE (NEGATIVE); NITRITE NEGATIVE (NEGATIVE); UROBILINOGEN NORMAL mg/dL (< 2)
[2020-07-03 20:36] VITALS: BP 120/78
== END 2020-07-03 20:36 | disposition home or self-care (01) ==
LOC: D.ER 16:56
PROVIDERS: Family Medicine
DX: N20.0 Calculus of kidney (principal); R10.9 Unspecified abdominal pain; E16.2 Hypoglycemia, unspecified; K21.9 Gastro-esophageal reflux disease without esophagitis

== ENCOUNTER 2020-07-04 17:25 | Observation (INO) | payer BC ==
[~2020-07-04] VITALS: Ht 152.4 cm; Wt 58.2 kg
[~2020-07-04 17:25] MED LIST changes: +FLOMAX0.4 MG PO; +HYDROCODON-ACE1 EA10 PO; +TORADOL10 MG PO; +ZOFRAN4 MG PO
[2020-07-04 18:30] LABS: BASOPHILS 0.3 % (0-2); EOSINOPHILS 0.8 % (0-7); HEMATOCRIT 36.5 % (36.0-48.0); HEMOGLOBIN 11.9 g/dL (12-16); IMMATURE GRANULOCYTES 0.1 % (0-5); LYMPHOCYTES 18.8 % (15-50); MCH 29.3 pg (26.0-34.0); MCHC 32.6 g/dL (31.0-37.0); MCV 89.9 fL (80.0-100.0); MEAN PLATELET VOLUME 12.1 fL (7.4-10.4); MONOCYTES 10.8 % (2-11); NEUTROPHILS 69.2 % (40-80); RBC 4.06 10x6/uL (4.00-5.40); RDW 13.2 % (11.5-14.5); WBC 7.2 10x3/uL (4.8-10.8)
[2020-07-04 18:32] VITALS: BP 145/84
--- NOTE | 2020-07-04 18:32 | NUR ---
PT ARRIVED VIA WHEELCHIAR. AMBULATES SELF IN ROOM UNASISTED. NO VISITORS AT THIS TIME. CL IN REACH. SRX2.
[2020-07-04 18:40] LABS: PLATELET COUNT 175 10x3/uL (130-400)
[2020-07-04 19:36] LABS: ANION GAP 8.9 mmol/L (8-16); CALCIUM 8.4 mg/dL (8.5-10.1); CARBON DIOXIDE 29.8 mmol/L (21.0-32.0); POTASSIUM - SERUM 3.7 mmol/L (3.5-5.1)
[2020-07-04 19:57] LABS: CREATININE - SERUM 1.1 mg/dL (0.6-1.3)
[2020-07-04 22:24] VITALS: BP 133/76
[2020-07-04 23:08] LABS: NITRITE POSITIVE (NEGATIVE)
[2020-07-04 23:09] LABS: BILIRUBIN NEGATIVE (NEGATIVE); KETONE MODERATE mg/dL (NEGATIVE); UROBILINOGEN NORMAL mg/dL (< 2)
[2020-07-04 23:10] LABS: BACTERIA MODERATE HPF (NONE SEEN); EPITHELIAL CELLS 0-5 /hpf (0-5)
[2020-07-05 03:19] VITALS: BP 116/63
[2020-07-05 05:31] VITALS: BP 138/76; Ht 152.4 cm; Wt 58.2 kg
[2020-07-05 06:59] VITALS: BP 115/68
[2020-07-05 07:00] VITALS: BP 128/67
--- NOTE | 2020-07-05 07:20 | NUR ---
RECIEVE REPORT. ALERT AND ORIENTED X4. CONSENTS ON CHART. INITIATE EKG PLACED ON CHART. DAUGHTER AT BEDSIDE. DENIES ANY NEEDS. CONTINUE PLAN OF CARE AND SAFETY PRECAUTIONS.
[2020-07-05 10:18] VITALS: BP 113/71
--- NOTE | 2020-07-05 10:20 | NUR ---
ARRIVE BACK TO ROOM VIA BED. SEDATED AROUSES TO STIMULI. BP-113/73, HR-92, O2-98% RA. CONTINUE TO MONITOR. CONTINUE PLAN OF CARE AND SAFETY PRECAUTIONS.
--- NOTE | 2020-07-05 12:29 | HP ---
PATIENT: RASTA SANDHU MEDICAL RECORD: [id number] ACCOUNT: [id number] LOCATION:[address] : 74 ADMISSION DATE: 07/04/20 PCP: THADDEUS AHUMADA MD HISTORY AND PHYSICAL EXAMINATION DATE ASSIGNED TO OBSERVATION: 07/04/2020 CHIEF COMPLAINT: Left flank and abdominal pain, nausea and failed outpatient treatment for left ureteral stone. HISTORY OF PRESENT ILLNESS: This is a 49-year-old female with a history of kidney stones, presented to the Emergency Department yesterday with left flank pain, nausea or vomiting. Her lab work looked okay, but a CT of the abdomen and pelvis showed a 3 mm stone at the UV junction with mild hydronephrosis. She was discharged home from ED with Flomax, Toradol, Zofran, and hydrocodone. She has not been able to hold down the hydrocodone. She has continued pain, nausea, vomiting and as her pain is not controlled we are admitting her into the hospital for pain control, IV fluids, and consultation to Dr. Lim. PAST MEDICAL AND SURGICAL HISTORY: The patient has a history of a gastric neuroendocrine tumor of her stomach found on EGD in November of [address] Caicedo. She underwent partial gastrectomy and Vesna-en-Y gastrojejunostomy on 04/03/2019, at [facility] for poorly differentiated gastric cancer. ALLERGIES: NOTED TO DILAUDID AND TAGAMET. HOME MEDICATIONS: Include tamsulosin, which was just started yesterday 0.4 mg once a day, ketorolac 10 mg one tablet every 6 hours as needed for pain, hydrocodone 5/325 one p.o. q.4 hours p.r.n. pain, Zofran 4 mg p.o. q.6 hours p.r.n. nausea and vomiting, pantoprazole 20 mg once a day, and multivitamin once a day. SOCIAL HISTORY: , works as a community organization worker MD-IT at [employer]. HABITS: She quit smoking, no alcohol, no illicit drug use. FAMILY HISTORY: Noncontributory. REVIEW OF SYSTEMS: GENERAL: No major weight changes. HEENT: No particular sinus or allergy problems. RESPIRATORY: No history of asthma or COPD. CARDIAC: No chest pain or palpitations. GASTROINTESTINAL: See above history with her cancer. GENITOURINARY: She has had kidney stones in the past. MUSCULOSKELETAL: No significant joint aches and pains. NEUROLOGIC: No migraines. No seizure disorder. PSYCHIATRIC: Denies depression or melancholia. PHYSICAL EXAMINATION: VITAL SIGNS: Temperature 98.1, pulse 65, respirations 16, blood pressure is 145/84, O2 sat 99%. GENERAL: She is awake and alert. She does not feel well. HEENT: Grossly within normal limits. HISTORY AND PHYSICAL [id number] SANDHUMARGEANA K NECK: Supple. No JVD or bruit. HEART: Regular rate and rhythm. LUNGS: Clear. ABDOMEN: With tenderness to the left flank and left side of abdomen. No guarding, no rebound, no mass. EXTREMITIES: No edema. NEUROLOGIC: Unremarkable. IMAGING STUDIES: CT of the abdomen and pelvis without contrast done on 07/03/2020, compared to CT done 12/21/2019, showed a 3 mm left UVJ stone with mild left hydronephrosis. There was a punctate nonobstructing right renal stone as well. ASSESSMENT: 1. Left ureter stone with mild left hydronephrosis, failed outpatient therapy. 2. Pain. 3. Nausea and vomiting. PLAN: Directly admitted from my office for IV fluids, IV pain control, Zofran p.r.n. and Dr. Lim has been consulted. Other tests or procedures as warranted. TRANSINT:[id number] Voice Confirmation ID: [id number] DOCUMENT ID: [id number] THADDEUS AHUMADA MD at 1229 CC: [id number] DICTATION DATE: 07/04/202150 CLERICAL AND OFFICE SUPPORT WORKERS: 07/05/20 0125 [id number] [place] [address]
--- NOTE | 2020-07-05 15:36 | NUR ---
ALERT AND ORIENTED X4. AMBULATING IN [place]. RIDE ARRIVES FOR DISCHARGE. DISHCARGE INSTRUCTIONS GIVEN VERBALLY AND WRITTEN. WRITTEN PRESCRIPTION FOR [place] PROVIDED. DISCHARGE PAPERS SIGNED ON CHART. DC RT UPPER ARM IV TIP INTACT. ESCORT TO RIDE VIA WHEELCHAIR. REMAINS FREE FROM INJURY.
--- NOTE | 2020-07-06 07:36 | OP ---
PATIENT NAME: RASTA SANDHU MEDICAL RECORD: [id number] :74 LOCATION:D.M2 D.2101 ADMISSION DATE:07/04/20 SURGEON: NENA OCONNELL MD DATE OF OPERATION: 07/05/2020 SURGEON: Nena Oconnell MD ANESTHESIA: General anesthesia by Fabricio Thompson CRNA. DIAGNOSIS: Left distal ureteral stone (passed). PROCEDURES: Cystoscopy, left retrograde pyelogram, left ureteroscopy and left ureteral stent insertion 6-[place] x 24 cm with string attached. FINDINGS: On retrograde pyelogram, no filling defects and no hydronephrosis. On ureteroscopy, no stone was seen. BLOOD LOSS: None. CLINICAL HISTORY: This is a 49-year-old female with a previous history of kidney stones. Last year, I removed a stone from the right ureter. She also has a history of a partial gastrectomy for gastric cancer and a cholecystectomy. She came to the Emergency Room with acute left flank pain. A CT scan shows a 2 x 3 mm stone at the left UV junction causing proximal hydronephrosis. She was admitted for pain control and started on Flomax. This morning, she was still complaining of mild pain and some nausea. A KUB was obtained, did not show any radiodense stones. On discussing the situation of the patient, I thought initially that we may just observe her as she may have passed the stone. However, she continued to have nausea and I decided that we should just proceed and look in. The patient was in agreement with this plan. She was given induction of general anesthesia. She was given Ancef 2 grams IV charge account identification clerk to the OR. DESCRIPTION OF PROCEDURE: She was then placed into lithotomy position and prepped and draped. Cystoscopy was performed using a 30-degree lens on a 22-[place] cystoscope. No bladder tumors were seen. There are single ureteral orifices on each side. A 5-[place] open-ended ureteral catheter was placed into the left ureteral orifice. Diluted contrast was injected for retrograde pyelogram. No filling defects were seen. There was no hydronephrosis. A Sensor wire was then placed through the lumen of the ureteral catheter up to the renal pelvis. Once the wire was in position, the ureteral catheter was removed entirely. Over the wire, we inserted a 21-[place] x 4-cm ureteral dilation balloon. The balloon was inflated at the left ureteral orifice to 10 atmospheres for a few seconds and then the balloon was deflated and removed. We then removed the cystoscope, leaving the wire in place. A semi-rigid ureteroscope was then introduced, following the wire. We followed the wire up to the proximal ureter. No stones were seen. On viewing the ureter as I withdrew, I again see no stones. She has passed her stone. We then backloaded the wire onto the cystoscope. Over the wire, we inserted a 6-[place] x 24 cm ureteral stent. Once the stent was in correct position, then the wire was withdrawn entirely. The distal end of the stent was pushed into the bladder using a pusher. The string on the distal end of stent was maintained. It was taped to the suprapubic region with a piece of Tegaderm. She will come back to the office in a few days' time to have the stent removed by pulling on the string. OPERATIVE REPORT [id number] SANDHUSHAILATERRY Mckee TRANSINT:[id number] Voice Confirmation ID: [id number] DOCUMENT ID: [id number] NENA OCONNELL MD at 0736 CC: [id number] DICTATION DATE: 07/05/20 1020 TRAFFIC WORKER: 07/05/20 1410 DIS IN 07/05/20 [facility] [address] [place] [address]
== END 2020-07-05 16:19 | disposition home or self-care (01) ==
LOC: D.M2 17:25 → OBSVTIME 17:25 → D.M2 18:13
PROVIDERS: ADMIT Family Medicine; ATTEND Family Medicine
DX: N20.2 Calculus of kidney with calculus of ureter (principal); R10.9 Unspecified abdominal pain; R11.0 Nausea

== ENCOUNTER 2020-12-20 13:15 | Outpatient (CLI) | payer BC ==
[2020-07-05 05:31] VITALS: BMI 25.0
== END 2020-12-20 23:59 | disposition home or self-care (01) ==
LOC: D.MAMMO 13:15
PROVIDERS: ATTEND Nurse Practitioner
DX: Z12.31 Encounter for screening mammogram for malignant neoplasm of breast (principal)